=== PATIENT | male | born 1940 | race Caucasian/White ===

== ENCOUNTER 2019-04-01 05:36 | Inpatient (IN) ==
[2019-04-01] MEDS ORDERED: DILTIAZEM 50 MG/10 ML VIAL IV STA (06:08)
[2019-04-01 06:13] LABS: Basophils # 0.1 10*3/uL (0.0-0.2); Eosinophils # 0.2 10*3/uL (0.0-0.87); Hematocrit 51.8 VOL% (42.0-52.0); Hemoglobin 16.9 GM/DL (14.0-18.0); Immature Granulocytes % 0.4 %; Immature Granulocytes Absolute 0.04 #; Lymphocytes # 1.5 10*3/uL (1.4-4.0); Lymphocytes % 14.4 % (21.2-54.2); Mean Corpuscular HGB Conc 32.6 GM/DL (32-36); Mean Corpuscular Volume 100.2 FL (87-102); Mean Platelet Volume 9.7 FL (9.6-12.0); Monocytes % 9.2 % (1.7-12.7); Platelet Count 278 T/CUMM (130-400); Red Blood Count 5.17 MC/CUMM (3.8-5.5); Red Cell Distribution Width 14.8 % (9.3-17.3); White Blood Count 10.7 T/CUMM (4-12)
[2019-04-01] MEDS ORDERED: dilTIAZem Drip 125 MG/125 ML PREMIX IV SCH (06:30)
[2019-04-01 06:43] LABS: INR 1.2; PT Patient Result 13.2 SECS (9.6-12.2); Partial Thromboplastin Time 29.6 SECS (20.8-36.0)
[2019-04-01 07:10] LABS: Albumin 3.2 G/DL (3.4-5.0); Bilirubin,Total 1.5 MG/DL (0.2-1.0); Calcium 8.1 MG/DL (8.5-10.1); Thyroid Stimulating Hormone 0.776 uIU/ml (0.358-3.74); Total Protein 7.8 G/DL (6.4-8.3)
[2019-04-01] MEDS ORDERED: FUROSEMIDE 40 MG/4 ML VIAL IV STA (07:23)
[2019-04-01] MEDS ORDERED: BISACODYL 5 MG TABLET PO PRN (08:05)
[2019-04-01] MEDS ORDERED: ONDANSETRON 4 MG/2 ML VIAL IV PRN (08:05)
[2019-04-01] MEDS ORDERED: guaiFENesin/DM ER 600-30 MG TABLET PO PRN (08:05)
[2019-04-01] MEDS ORDERED: NICOTINE 21 MG/24 HR PATCH TRANSDERM PRN (08:05)
[2019-04-01] MEDS: APIXABAN 5 MG TABLET PO SCH ×2 (10:07→21:01)
[2019-04-01] MEDS: PANTOPRAZOLE 40 MG TABLET PO SCH (10:07)
[2019-04-01 10:10] LABS: Barbiturates Screen,Urine Negative (Negative); Benzodiazepines Screen,Urine Negative (Negative); Cannabinoid Screen,Urine Negative (Negative); Opiate Screen,Urine Negative (Negative); Phencyclidine Screen,Urine Negative (Negative)
[2019-04-01] MEDS ORDERED: ALBUTEROL 2.5 MG/3 ML NEB RESP TX PRN (12:30)
[2019-04-01] MEDS: ASPIRIN EC 81 MG TABLET PO SCH (14:36)
[2019-04-01] MEDS: FUROSEMIDE 40 MG/4 ML VIAL IV SCH (15:52)
[2019-04-01] MEDS: dilTIAZem Drip 125 MG/125 ML PREMIX IV SCH (16:05)
[2019-04-01] MEDS: METOPROLOL SUCCINATE XL 50 MG TABLET PO SCH (21:01)
[2019-04-01] MEDS: ZALEPLON 5 MG CAPSULE PO SCH (21:01)
[2019-04-02] MEDS: dilTIAZem Drip 125 MG/125 ML PREMIX IV SCH ×2 (05:41→09:04)
[2019-04-02 05:52] LABS: Bilirubin,Total 1.2 MG/DL (0.2-1.0); Calcium 8.7 MG/DL (8.5-10.1); Osmolality,Calculated 282.4 MOS/KG (273-304); Risk Ratio 2.22; VLDL CHOLESTEROL 10.8 MG/DL
[2019-04-02] MEDS: PANTOPRAZOLE 40 MG TABLET PO SCH (09:02)
[2019-04-02] MEDS: METOPROLOL SUCCINATE XL 50 MG TABLET PO SCH (09:02)
[2019-04-02] MEDS: ASPIRIN EC 81 MG TABLET PO SCH (09:02)
[2019-04-02] MEDS: FUROSEMIDE 40 MG/4 ML VIAL IV SCH (09:03)
[2019-04-02] MEDS: APIXABAN 5 MG TABLET PO SCH ×2 (09:03→20:34)
[2019-04-02] MEDS ORDERED: METOPROLOL SUCCINATE XL 25 MG TABLET PO ONE (10:39)
[2019-04-02] MEDS: SPIRONOLACTONE 25 MG TABLET PO SCH (10:50)
[2019-04-02] MEDS: cefTRIAXone 1,000 MG in SYRINGE 1 EACH IV SCH (10:52)
[2019-04-02] MEDS: AZITHROMYCIN INJ 500 MG in SODIUM CHLORIDE 0.9% 250 ML IV SCH (10:54)
[2019-04-02] MEDS: FUROSEMIDE 40 MG TABLET PO SCH (15:59)
[2019-04-02] MEDS: ACETAMINOPHEN 325 MG TABLET PO PRN (19:22)
[2019-04-02] MEDS: METOPROLOL SUCCINATE XL 100 MG TABLET PO SCH (20:34)
[2019-04-02] MEDS: ZALEPLON 5 MG CAPSULE PO SCH (20:35)
[2019-04-02] MEDS: guaiFENesin/DM ER 600-30 MG TABLET PO SCH (20:35)
[2019-04-03 05:29] LABS: Calcium 8.2 MG/DL (8.5-10.1); Osmolality,Calculated 278.8 MOS/KG (273-304)
[2019-04-03] MEDS: FUROSEMIDE 40 MG TABLET PO SCH ×2 (09:25→15:28)
[2019-04-03] MEDS: guaiFENesin/DM ER 600-30 MG TABLET PO SCH ×2 (09:25→21:22)
[2019-04-03] MEDS: SPIRONOLACTONE 25 MG TABLET PO SCH (09:25)
[2019-04-03] MEDS: METOPROLOL SUCCINATE XL 100 MG TABLET PO SCH ×2 (09:25→21:22)
[2019-04-03] MEDS: APIXABAN 5 MG TABLET PO SCH ×2 (09:25→21:22)
[2019-04-03] MEDS: PANTOPRAZOLE 40 MG TABLET PO SCH (09:25)
[2019-04-03] MEDS: ASPIRIN EC 81 MG TABLET PO SCH (09:26)
[2019-04-03] MEDS: cefTRIAXone 1,000 MG in SYRINGE 1 EACH IV SCH (09:26)
[2019-04-03] MEDS ORDERED: LORazepam 0.5 MG TABLET PO PRN (10:16)
[2019-04-03] MEDS: predniSONE 20 MG TABLET PO SCH (10:56)
[2019-04-03] MEDS: AZITHROMYCIN INJ 500 MG in SODIUM CHLORIDE 0.9% 250 ML IV SCH (11:00)
[2019-04-03] MEDS: ACETAMINOPHEN 325 MG TABLET PO PRN (17:41)
[2019-04-03] MEDS: ZALEPLON 5 MG CAPSULE PO SCH (21:22)
[2019-04-03] MEDS: SERTRALINE 25 MG TABLET PO SCH (21:22)
[2019-04-04 05:21] LABS: Basophils % 0.3 % (0.0-0.8); Hemoglobin 16.7 GM/DL (14.0-18.0); Immature Granulocytes % 0.3 %; Immature Granulocytes Absolute 0.02 #; Lymphocytes # 0.8 10*3/uL (1.4-4.0); Lymphocytes % 11.8 % (21.2-54.2); Mean Corpuscular HGB Conc 34.1 GM/DL (32-36); Mean Corpuscular Volume 97.2 FL (87-102); Mean Platelet Volume 9.8 FL (9.6-12.0); Monocytes % 4.9 % (1.7-12.7); Neutrophils % 82.7 % (38.7-73.9); Platelet Count 360 T/CUMM (130-400); Red Blood Count 5.04 MC/CUMM (3.8-5.5); Red Cell Distribution Width 13.9 % (9.3-17.3); White Blood Count 7.1 T/CUMM (4-12)
[2019-04-04 05:49] LABS: Calcium 8.4 MG/DL (8.5-10.1); Osmolality,Calculated 280.8 MOS/KG (273-304)
[2019-04-04] MEDS: predniSONE 20 MG TABLET PO SCH (08:43)
[2019-04-04] MEDS: guaiFENesin/DM ER 600-30 MG TABLET PO SCH ×2 (08:43→20:37)
[2019-04-04] MEDS: ASPIRIN EC 81 MG TABLET PO SCH (08:43)
[2019-04-04] MEDS: FUROSEMIDE 40 MG TABLET PO SCH (08:44)
[2019-04-04] MEDS: APIXABAN 5 MG TABLET PO SCH ×2 (08:44→20:38)
[2019-04-04] MEDS: SPIRONOLACTONE 25 MG TABLET PO SCH (08:44)
[2019-04-04] MEDS: PANTOPRAZOLE 40 MG TABLET PO SCH (08:44)
[2019-04-04] MEDS: METOPROLOL SUCCINATE XL 100 MG TABLET PO SCH ×2 (08:44→20:37)
[2019-04-04] MEDS: AZITHROMYCIN INJ 500 MG in SODIUM CHLORIDE 0.9% 250 ML IV SCH (09:56)
[2019-04-04] MEDS: cefTRIAXone 1,000 MG in SYRINGE 1 EACH IV SCH (09:57)
[2019-04-04] MEDS ORDERED: propofoL 200 MG/20 ML VIAL IV ONE (12:07)
[2019-04-04] MEDS ORDERED: LIDOCAINE 2% 5 ML VIAL ONE (12:07)
[2019-04-04] MEDS ORDERED: SODIUM CHLORIDE 0.9% 1,000 ML IV SCH (13:30)
[2019-04-04] MEDS: ZALEPLON 5 MG CAPSULE PO SCH (20:37)
[2019-04-04] MEDS: ACETAMINOPHEN 325 MG TABLET PO PRN (20:37)
[2019-04-04] MEDS: SERTRALINE 25 MG TABLET PO SCH (20:38)
[2019-04-05 05:40] LABS: Osmolality,Calculated 285.7 MOS/KG (273-304)
[2019-04-05] MEDS: guaiFENesin/DM ER 600-30 MG TABLET PO SCH (08:56)
[2019-04-05] MEDS: ASPIRIN EC 81 MG TABLET PO SCH (08:56)
[2019-04-05] MEDS: FUROSEMIDE 40 MG TABLET PO SCH (08:56)
[2019-04-05] MEDS: APIXABAN 5 MG TABLET PO SCH (08:56)
[2019-04-05] MEDS: predniSONE 20 MG TABLET PO SCH (08:56)
[2019-04-05] MEDS: PANTOPRAZOLE 40 MG TABLET PO SCH (08:57)
[2019-04-05] MEDS: METOPROLOL SUCCINATE XL 100 MG TABLET PO SCH (08:57)
[2019-04-05] MEDS: cefTRIAXone 1,000 MG in SYRINGE 1 EACH IV SCH (09:01)
[2019-04-05 16:37] VITALS: BP 132/80
== END 2019-04-05 18:45 | disposition home or self-care (01) | DRG 308 ==
LOC: N.ED 05:36 → N.EDINP 08:05 → N.TELES 12:16
PROVIDERS: ADMIT Internal Medicine; ATTEND Internal Medicine

== ENCOUNTER 2020-12-31 12:35 | Inpatient (IN) ==
[2020-12-31 13:51] LABS: Bilirubin,Urine Negative (Negative); Blood, Urine Small mg/dL (Negative); Glucose,Urine (UA) Negative (Negative); Ketones,Urine Negative (Negative); Nitrite,Urine Negative (Negative); Protein,Urine Negative; RBC,Urine 2 /HPF (0-4); Urine Appearance CLEAR (Clear); Urine Color Yellow (Yellow); Urine Specific Gravity 1.012 (1.001-1.035); Urine Urobilinogen < 2.0 EU/DL (0.2-1.0)
[2020-12-31 13:57] LABS: Basophils % 0.4 % (0.0-0.8); Eosinophils # 0.1 10*3/uL (0.0-0.87); Eosinophils % 1.4 % (0.00-10.9); Hematocrit 23.2 VOL% (42.0-52.0); Hemoglobin 7.6 GM/DL (14.0-18.0); Immature Granulocytes % 0.6 %; Immature Granulocytes Absolute 0.05 #; Lymphocytes # 0.8 10*3/uL (1.4-4.0); Lymphocytes % 9.2 % (21.2-54.2); Mean Corpuscular HGB Conc 32.8 GM/DL (32-36); Mean Corpuscular Volume 103.6 FL (87-102); Mean Platelet Volume 9.8 FL (9.6-12.0); Monocytes % 7.3 % (1.7-12.7); Neutrophils % 81.1 % (38.7-73.9); Platelet Count 132 T/CUMM (130-400); Red Blood Count 2.24 MC/CUMM (3.8-5.5); Red Cell Distribution Width 18.1 % (9.3-17.3); White Blood Count 8.5 T/CUMM (4-12)
[2020-12-31 14:08] LABS: Alanine Aminotransferase 265 U/L (16-61); Albumin 2.3 G/DL (3.4-5.0); Alkaline Phosphatase 98 U/L (45-117); Aspartate Amino Transferase 109 U/L (0-37); Blood Urea Nitrogen 52 MG/DL (7-18); Calcium 7.5 MG/DL (8.5-10.1); Carbon Dioxide 29 MMOL/L (21-32); Estimated Glom Filtration Rate 92 ML/MIN; Glucose 114 MG/DL (74-106); Potassium 4.9 MMOL/L (3.5-5.1); Sodium 143 MMOL/L (136-145); Total Protein 4.4 G/DL (6.4-8.2)
[2020-12-31 14:28] LABS: INR 1.2; PT Patient Result 12.8 SECS (10.5-12.0); Partial Thromboplastin Time 27.9 SECS (23.9-33.8)
[2020-12-31] MEDS ORDERED: PANTOPRAZOLE 40 MG VIAL IV STA (14:58)
[2020-12-31] MEDS ORDERED: cefTRIAXone 2,000 MG in SODIUM CHLORIDE 0.9% 100 ML IV STA (15:04)
[2020-12-31] MEDS ORDERED: ONDANSETRON 4 MG/2 ML VIAL IV PRN (15:35)
[2020-12-31] MEDS ORDERED: DEXTROSE 50% 25 GM/50 ML VIAL IV PRN (15:35)
[2020-12-31] MEDS ORDERED: GLUCAGON 1 MG VIAL IM PRN (15:35)
[2020-12-31] MEDS ORDERED: NICOTINE 21 MG/24 HR PATCH TRANSDERM PRN (16:16)
[2020-12-31 16:44] LABS: Hepatitis B Core IgM Quant 0.08 Index; Hepatitis B Surface Ag Quant < 0.10 Index; Hepatitis B Surface Ag Result Non-Reactive (NonReactive); Hepatitis C Virus Ab Quant 0.06 Index; Hepatitis C Virus Ab Result Non-Reactive (NonReactive)
[2020-12-31 16:52] LABS: Folate 7.76 NG/ML (5.38-24.0)
[2020-12-31] MEDS: SODIUM CHLORIDE 0.9% 1,000 ML IV SCH (17:19)
[2020-12-31 17:29] LABS: Hematocrit 20.8 VOL% (42.0-52.0)
[2020-12-31] MEDS: PANTOPRAZOLE 40 MG TABLET PO SCH (20:50)
[2020-12-31 21:45] LABS: Hematocrit 19.5 VOL% (42.0-52.0); Hemoglobin 6.5 GM/DL (14.0-18.0)
[2020-12-31] MEDS ORDERED: SODIUM CHLORIDE 0.9% 1,000 ML IV PRN (22:58)
[2021-01-01] MEDS ORDERED: SODIUM CHLORIDE 0.9% 1,000 ML IV PRN (02:28)
[2021-01-01] MEDS: PANTOPRAZOLE 40 MG TABLET PO SCH ×2 (08:23→20:40)
[2021-01-01 09:28] LABS: Basophils # 0.1 10*3/uL (0.0-0.2); Basophils % 0.7 % (0.0-0.8); Eosinophils # 0.4 10*3/uL (0.0-0.87); Eosinophils % 4.5 % (0.00-10.9); Hematocrit 27.3 VOL% (42.0-52.0); Immature Granulocytes % 0.3 %; Immature Granulocytes Absolute 0.03 #; Lymphocytes % 21.7 % (21.2-54.2); Mean Corpuscular HGB Conc 33.7 GM/DL (32-36); Mean Corpuscular Volume 97.8 FL (87-102); Mean Platelet Volume 9.7 FL (9.6-12.0); Monocytes % 9.1 % (1.7-12.7); Neutrophils % 63.7 % (38.7-73.9); Platelet Count 121 T/CUMM (130-400); Red Cell Distribution Width 17.8 % (9.3-17.3); White Blood Count 9.1 T/CUMM (4-12)
[2021-01-01 09:29] LABS: Red Blood Count 2.79 MC/CUMM (3.8-5.5)
[2021-01-01 09:30] LABS: Hemoglobin 9.2 GM/DL (14.0-18.0)
[2021-01-01 09:50] LABS: Albumin 2.3 G/DL (3.4-5.0); Bilirubin,Total 1.1 MG/DL (0.20-1.00); Calcium 7.7 MG/DL (8.5-10.1); Potassium 4.2 MMOL/L (3.5-5.1); Total Protein 5.3 G/DL (6.4-8.2)
[2021-01-01 09:56] LABS: Osmolality,Calculated 293.1 MOS/KG (273-304)
[2021-01-01 14:04] LABS: Hematocrit 27.6 VOL% (42.0-52.0); Hemoglobin 9.4 GM/DL (14.0-18.0)
[2021-01-01 21:09] LABS: Hematocrit 25.6 VOL% (42.0-52.0); Hemoglobin 8.4 GM/DL (14.0-18.0)
[2021-01-02] MEDS: SODIUM CHLORIDE 0.9% 1,000 ML IV SCH ×4 (00:33→22:46)
[2021-01-02 05:52] LABS: Albumin 2.1 G/DL (3.4-5.0); Bilirubin,Total 1.1 MG/DL (0.20-1.00); Calcium 7.9 MG/DL (8.5-10.1); Osmolality,Calculated 292.7 MOS/KG (273-304); Potassium 3.8 MMOL/L (3.5-5.1)
[2021-01-02 07:04] LABS: Basophils # 0.1 10*3/uL (0.0-0.2); Basophils % 0.6 % (0.0-0.8); Eosinophils # 0.4 10*3/uL (0.0-0.87); Eosinophils % 4.8 % (0.00-10.9); Hematocrit 25.1 VOL% (42.0-52.0); Hemoglobin 8.2 GM/DL (14.0-18.0); Immature Granulocytes % 0.5 %; Immature Granulocytes Absolute 0.04 #; Lymphocytes # 2.1 10*3/uL (1.4-4.0); Lymphocytes % 24.6 % (21.2-54.2); Mean Corpuscular HGB Conc 32.7 GM/DL (32-36); Mean Corpuscular Volume 99.2 FL (87-102); Mean Platelet Volume 9.5 FL (9.6-12.0); Monocytes % 11.1 % (1.7-12.7); Neutrophils % 58.4 % (38.7-73.9); Platelet Count 134 T/CUMM (130-400); Red Blood Count 2.53 MC/CUMM (3.8-5.5); Red Cell Distribution Width 17.9 % (9.3-17.3); White Blood Count 8.4 T/CUMM (4-12)
[2021-01-02] MEDS: PANTOPRAZOLE 40 MG TABLET PO SCH ×2 (08:13→20:39)
[2021-01-02] MEDS ORDERED: DIGOXIN 0.125 MG TABLET PO ONE (08:48)
[2021-01-02] MEDS ORDERED: GLUCAGON 1 MG VIAL IM PRN (10:42)
[2021-01-02] MEDS ORDERED: DEXTROSE 50% 25 GM/50 ML VIAL IV PRN (10:42)
[2021-01-02] MEDS: cefTRIAXone 1,000 MG in SODIUM CHLORIDE 0.9% 100 ML IV SCH (13:57)
[2021-01-02] MEDS: traZODone 50 MG TABLET PO SCH (20:39)
[2021-01-02] MEDS: TAMSULOSIN 0.4 MG CAPSULE PO SCH (20:39)
[2021-01-03 05:32] LABS: Basophils # 0.1 10*3/uL (0.0-0.2); Basophils % 0.7 % (0.0-0.8); Eosinophils # 0.3 10*3/uL (0.0-0.87); Eosinophils % 3.4 % (0.00-10.9); Hematocrit 24.5 VOL% (42.0-52.0); Hemoglobin 8.2 GM/DL (14.0-18.0); Immature Granulocytes % 0.5 %; Immature Granulocytes Absolute 0.04 #; Lymphocytes # 1.4 10*3/uL (1.4-4.0); Lymphocytes % 17.1 % (21.2-54.2); Mean Corpuscular HGB Conc 33.5 GM/DL (32-36); Mean Corpuscular Volume 99.2 FL (87-102); Mean Platelet Volume 9.7 FL (9.6-12.0); Neutrophils % 66.3 % (38.7-73.9); Platelet Count 149 T/CUMM (130-400); Red Blood Count 2.47 MC/CUMM (3.8-5.5); Red Cell Distribution Width 17.5 % (9.3-17.3); White Blood Count 8.3 T/CUMM (4-12)
[2021-01-03 05:54] LABS: Albumin 2.2 G/DL (3.4-5.0); Bilirubin,Total 0.8 MG/DL (0.20-1.00); Calcium 7.7 MG/DL (8.5-10.1); Osmolality,Calculated 289.7 MOS/KG (273-304); Potassium 3.6 MMOL/L (3.5-5.1); Total Protein 5.2 G/DL (6.4-8.2)
[2021-01-03] MEDS ORDERED: ETOMIDATE 20 MG/10 ML VIAL IV ONE (11:38)
[2021-01-03] MEDS ORDERED: propofoL 200 MG/20 ML VIAL IV ONE (11:38)
[2021-01-03] MEDS ORDERED: LIDOCAINE 2% 5 ML VIAL ONE (11:38)
[2021-01-03] MEDS ORDERED: METOPROLOL TARTRATE 5 MG/5 ML VIAL IV ONE (11:41)
[2021-01-03] MEDS: PANTOPRAZOLE 40 MG TABLET PO SCH ×2 (14:12→20:03)
[2021-01-03] MEDS: cefTRIAXone 1,000 MG in SODIUM CHLORIDE 0.9% 100 ML IV SCH (14:13)
[2021-01-03] MEDS: SODIUM CHLORIDE 0.9% 1,000 ML IV SCH (14:13)
[2021-01-03] MEDS: traZODone 50 MG TABLET PO SCH (20:02)
[2021-01-03] MEDS: TAMSULOSIN 0.4 MG CAPSULE PO SCH (20:02)
[2021-01-03] MEDS: ACETAMINOPHEN 325 MG TABLET PO PRN (23:38)
[2021-01-04] MEDS ORDERED: METOPROLOL TARTRATE 5 MG/5 ML VIAL IV ONE (00:15)
[2021-01-04] MEDS: SODIUM CHLORIDE 0.9% 1,000 ML IV SCH ×3 (02:40→23:09)
[2021-01-04 05:14] LABS: Basophils % 0.4 % (0.0-0.8); Eosinophils # 0.2 10*3/uL (0.0-0.87); Eosinophils % 1.7 % (0.00-10.9); Hematocrit 24.1 VOL% (42.0-52.0); Hemoglobin 7.7 GM/DL (14.0-18.0); Immature Granulocytes % 0.3 %; Immature Granulocytes Absolute 0.03 #; Lymphocytes # 1.2 10*3/uL (1.4-4.0); Lymphocytes % 13.4 % (21.2-54.2); Mean Corpuscular Volume 100.8 FL (87-102); Mean Platelet Volume 9.7 FL (9.6-12.0); Monocytes % 12.4 % (1.7-12.7); Neutrophils % 71.8 % (38.7-73.9); Platelet Count 155 T/CUMM (130-400); Red Blood Count 2.39 MC/CUMM (3.8-5.5); Red Cell Distribution Width 17.6 % (9.3-17.3); White Blood Count 9.2 T/CUMM (4-12)
[2021-01-04 05:33] LABS: Albumin 2.2 G/DL (3.4-5.0); Bilirubin,Total 1.1 MG/DL (0.20-1.00); Calcium 7.6 MG/DL (8.5-10.1); Potassium 3.4 MMOL/L (3.5-5.1); Total Protein 5.2 G/DL (6.4-8.2)
[2021-01-04 05:34] LABS: Hypochromasia 1+; Microcytosis 1+; Platelet Estimate Adequate
[2021-01-04] MEDS ORDERED: POTASSIUM CHLORIDE 20 MEQ TABLET PO PRN (06:54)
[2021-01-04] MEDS ORDERED: MAGNESIUM SULF RIDER 1 GM/100 ML PREMIX IV ONE (07:30)
[2021-01-04] MEDS: FINASTERIDE 5 MG TABLET PO SCH (08:48)
[2021-01-04] MEDS: PANTOPRAZOLE 40 MG TABLET PO SCH ×2 (08:48→21:08)
[2021-01-04] MEDS ORDERED: METOPROLOL SUCCINATE XL 100 MG TABLET PO SCH (09:00)
[2021-01-04] MEDS ORDERED: ALBUTEROL 2.5 MG/3 ML NEB RESP TX PRN (09:32)
[2021-01-04] MEDS ORDERED: BENZONATATE 100 MG CAPSULE PO PRN (09:36)
[2021-01-04] MEDS ORDERED: SODIUM CHLORIDE 0.9% 1,000 ML IV PRN (09:37)
[2021-01-04] MEDS: DIGOXIN 0.125 MG TABLET PO SCH (14:10)
[2021-01-04] MEDS: cefTRIAXone 1,000 MG in SODIUM CHLORIDE 0.9% 100 ML IV SCH (16:51)
[2021-01-04 18:10] LABS: Hematocrit 29.3 VOL% (42.0-52.0); Hemoglobin 9.7 GM/DL (14.0-18.0)
[2021-01-04] MEDS ORDERED: METOPROLOL SUCCINATE XL 50 MG TABLET PO SCH (21:00)
[2021-01-04] MEDS: METOPROLOL TARTRATE 25 MG TABLET PO SCH (21:08)
[2021-01-04] MEDS: traZODone 50 MG TABLET PO SCH (21:08)
[2021-01-05] MEDS: SODIUM CHLORIDE 0.9% 1,000 ML IV SCH (04:30)
[2021-01-05 06:43] LABS: Basophils # 0.1 10*3/uL (0.0-0.2); Basophils % 0.7 % (0.0-0.8); Eosinophils # 0.2 10*3/uL (0.0-0.87); Eosinophils % 2.8 % (0.00-10.9); Hematocrit 33.6 VOL% (42.0-52.0); Hemoglobin 10.9 GM/DL (14.0-18.0); Immature Granulocytes % 0.3 %; Immature Granulocytes Absolute 0.02 #; Lymphocytes # 1.1 10*3/uL (1.4-4.0); Lymphocytes % 14.2 % (21.2-54.2); Mean Corpuscular HGB Conc 32.4 GM/DL (32-36); Mean Corpuscular Volume 98.2 FL (87-102); Mean Platelet Volume 9.7 FL (9.6-12.0); Monocytes % 12.6 % (1.7-12.7); Neutrophils % 69.4 % (38.7-73.9); Platelet Count 192 T/CUMM (130-400); Red Blood Count 3.42 MC/CUMM (3.8-5.5); Red Cell Distribution Width 18.6 % (9.3-17.3); White Blood Count 7.5 T/CUMM (4-12)
[2021-01-05 07:12] LABS: Albumin 2.3 G/DL (3.4-5.0); Bilirubin,Total 1.6 MG/DL (0.20-1.00); Calcium 8.1 MG/DL (8.5-10.1); Osmolality,Calculated 286.8 MOS/KG (273-304); Potassium 3.7 MMOL/L (3.5-5.1); Total Protein 5.6 G/DL (6.4-8.2)
[2021-01-05] MEDS ORDERED: FINASTERIDE 5 MG TABLET PO SCH (09:00)
[2021-01-05] MEDS: PANTOPRAZOLE 40 MG TABLET PO SCH ×2 (09:09→21:36)
[2021-01-05] MEDS: FINASTERIDE 5 MG TABLET PO SCH (09:09)
[2021-01-05] MEDS: METOPROLOL TARTRATE 25 MG TABLET PO SCH ×2 (09:09→21:36)
[2021-01-05] MEDS: FLUCONAZOLE 200 MG TABLET PO SCH (09:10)
[2021-01-05] MEDS ORDERED: INFLUENZA VIRUS VACCINE 0.5 ML SYRINGE IM ONE (10:50)
[2021-01-05] MEDS ORDERED: BISACODYL 5 MG TABLET PO ONE (12:00)
[2021-01-05] MEDS: DIGOXIN 0.125 MG TABLET PO SCH (12:34)
[2021-01-05] MEDS: cefTRIAXone 1,000 MG in SODIUM CHLORIDE 0.9% 100 ML IV SCH (12:35)
[2021-01-05] MEDS ORDERED: POLYETHYLENE GLYCOL POWDER 255 GM BOTTLE PO ONE (13:00)
[2021-01-05] MEDS: ACETAMINOPHEN 325 MG TABLET PO PRN ×2 (14:40→21:35)
[2021-01-05] MEDS ORDERED: MAGNESIUM CITRATE 300 ML BOTTLE PO ONE (21:00)
[2021-01-05] MEDS: traZODone 50 MG TABLET PO SCH (21:36)
[2021-01-06 05:34] LABS: Basophils # 0.1 10*3/uL (0.0-0.2); Basophils % 0.6 % (0.0-0.8); Eosinophils # 0.2 10*3/uL (0.0-0.87); Eosinophils % 2.9 % (0.00-10.9); Hematocrit 33.2 VOL% (42.0-52.0); Hemoglobin 10.8 GM/DL (14.0-18.0); Immature Granulocytes % 0.4 %; Immature Granulocytes Absolute 0.03 #; Lymphocytes # 1.4 10*3/uL (1.4-4.0); Lymphocytes % 18.6 % (21.2-54.2); Mean Corpuscular HGB Conc 32.5 GM/DL (32-36); Mean Corpuscular Volume 99.1 FL (87-102); Mean Platelet Volume 9.7 FL (9.6-12.0); Monocytes % 12.6 % (1.7-12.7); Neutrophils % 64.9 % (38.7-73.9); Platelet Count 204 T/CUMM (130-400); Red Blood Count 3.35 MC/CUMM (3.8-5.5); Red Cell Distribution Width 18.6 % (9.3-17.3); White Blood Count 7.7 T/CUMM (4-12)
[2021-01-06 05:37] LABS: INR 1.1; PT Patient Result 12.2 SECS (10.5-12.0)
[2021-01-06 06:02] LABS: Albumin 2.3 G/DL (3.4-5.0); Bilirubin,Total 0.8 MG/DL (0.20-1.00); Calcium 7.8 MG/DL (8.5-10.1); Potassium 3.7 MMOL/L (3.5-5.1); Total Protein 5.7 G/DL (6.4-8.2)
[2021-01-06] MEDS ORDERED: SODIUM CHLORIDE 0.9% 1,000 ML IV SCH (08:00)
[2021-01-06] MEDS: PANTOPRAZOLE 40 MG TABLET PO SCH ×3 (08:29→22:10)
[2021-01-06] MEDS: FLUCONAZOLE 200 MG TABLET PO SCH ×2 (08:29→11:34)
[2021-01-06] MEDS: FINASTERIDE 5 MG TABLET PO SCH ×2 (08:29→11:34)
[2021-01-06] MEDS: METOPROLOL TARTRATE 25 MG TABLET PO SCH ×2 (08:29→11:34)
[2021-01-06] MEDS ORDERED: POLYETHYLENE GLYCOL POWDER 255 GM BOTTLE PO ONE (11:00)
[2021-01-06] MEDS: DIGOXIN 0.125 MG TABLET PO SCH (12:02)
[2021-01-06] MEDS: cefTRIAXone 1,000 MG in SODIUM CHLORIDE 0.9% 100 ML IV SCH (12:33)
[2021-01-06] MEDS ORDERED: METOPROLOL TARTRATE 25 MG TABLET PO ONE (14:45)
[2021-01-06] MEDS: METOPROLOL TARTRATE 50 MG TABLET PO SCH (22:10)
[2021-01-06] MEDS: traZODone 50 MG TABLET PO SCH (22:10)
[2021-01-07 06:01] LABS: Basophils # 0.1 10*3/uL (0.0-0.2); Basophils % 0.7 % (0.0-0.8); Eosinophils # 0.2 10*3/uL (0.0-0.87); Eosinophils % 1.9 % (0.00-10.9); Hematocrit 36.5 VOL% (42.0-52.0); Hemoglobin 11.8 GM/DL (14.0-18.0); Immature Granulocytes % 0.4 %; Immature Granulocytes Absolute 0.04 #; Lymphocytes # 1.4 10*3/uL (1.4-4.0); Lymphocytes % 15.6 % (21.2-54.2); Mean Corpuscular HGB Conc 32.3 GM/DL (32-36); Mean Corpuscular Volume 100.6 FL (87-102); Mean Platelet Volume 9.8 FL (9.6-12.0); Neutrophils % 71.4 % (38.7-73.9); Platelet Count 288 T/CUMM (130-400); Red Blood Count 3.63 MC/CUMM (3.8-5.5); Red Cell Distribution Width 18.6 % (9.3-17.3); White Blood Count 9.1 T/CUMM (4-12)
[2021-01-07 06:07] LABS: INR 1.1; PT Patient Result 11.8 SECS (10.5-12.0)
[2021-01-07 06:19] LABS: Albumin 2.5 G/DL (3.4-5.0); Bilirubin,Total 0.8 MG/DL (0.20-1.00); Calcium 8.3 MG/DL (8.5-10.1); Osmolality,Calculated 284.8 MOS/KG (273-304); Potassium 3.6 MMOL/L (3.5-5.1); Total Protein 6.1 G/DL (6.4-8.2)
[2021-01-07] MEDS ORDERED: propofoL 200 MG/20 ML VIAL IV ONE (07:28)
[2021-01-07] MEDS ORDERED: ETOMIDATE 20 MG/10 ML VIAL IV ONE (07:28)
[2021-01-07] MEDS ORDERED: LIDOCAINE 2% 5 ML VIAL ONE (07:28)
[2021-01-07] MEDS ORDERED: SODIUM CHLORIDE 0.9% 1,000 ML IV SCH (08:00)
[2021-01-07] MEDS ORDERED: SODIUM CHLORIDE 0.9% 500 ML IV SCH (08:00)
[2021-01-07] MEDS ORDERED: PHENYLEPHRINE 1 MG/10 ML SYRINGE IV ONE (08:28)
[2021-01-07] MEDS: METOPROLOL TARTRATE 50 MG TABLET PO SCH ×2 (10:05→21:23)
[2021-01-07] MEDS: FINASTERIDE 5 MG TABLET PO SCH (10:05)
[2021-01-07] MEDS: cefTRIAXone 1,000 MG in SODIUM CHLORIDE 0.9% 100 ML IV SCH (10:05)
[2021-01-07] MEDS: PANTOPRAZOLE 40 MG TABLET PO SCH ×2 (10:05→21:23)
[2021-01-07] MEDS: FLUCONAZOLE 200 MG TABLET PO SCH (10:05)
[2021-01-07] MEDS: DIGOXIN 0.125 MG TABLET PO SCH (16:04)
[2021-01-07] MEDS: ACETAMINOPHEN 325 MG TABLET PO PRN (18:09)
[2021-01-07] MEDS: APIXABAN 5 MG TABLET PO SCH (21:22)
[2021-01-07] MEDS: traZODone 50 MG TABLET PO SCH (21:23)
[2021-01-08 05:19] LABS: Basophils # 0.1 10*3/uL (0.0-0.2); Basophils % 0.8 % (0.0-0.8); Eosinophils # 0.2 10*3/uL (0.0-0.87); Eosinophils % 2.8 % (0.00-10.9); Hematocrit 35.4 VOL% (42.0-52.0); Hemoglobin 11.4 GM/DL (14.0-18.0); Immature Granulocytes % 0.4 %; Immature Granulocytes Absolute 0.03 #; Lymphocytes # 1.7 10*3/uL (1.4-4.0); Mean Corpuscular HGB Conc 32.2 GM/DL (32-36); Mean Corpuscular Volume 99.4 FL (87-102); Mean Platelet Volume 9.7 FL (9.6-12.0); Monocytes % 11.3 % (1.7-12.7); Neutrophils % 62.7 % (38.7-73.9); Platelet Count 257 T/CUMM (130-400); Red Blood Count 3.56 MC/CUMM (3.8-5.5); Red Cell Distribution Width 18.3 % (9.3-17.3); White Blood Count 7.6 T/CUMM (4-12)
[2021-01-08 05:44] LABS: Bilirubin,Total 0.5 MG/DL (0.20-1.00); Calcium 7.8 MG/DL (8.5-10.1); Osmolality,Calculated 273.8 MOS/KG (273-304); Potassium 3.7 MMOL/L (3.5-5.1); Total Protein 5.5 G/DL (6.4-8.2)
[2021-01-08 05:46] LABS: Eosinophils 4 % (0-10); Lymphocytes 20 % (20-55); Platelet Estimate Normal; Segmented Neutrophils 68 % (50-85); Total Cells Counted 100
[2021-01-08] MEDS: PANTOPRAZOLE 40 MG TABLET PO SCH (09:44)
[2021-01-08] MEDS: METOPROLOL TARTRATE 50 MG TABLET PO SCH (09:44)
[2021-01-08] MEDS: APIXABAN 5 MG TABLET PO SCH (09:44)
[2021-01-08] MEDS: FINASTERIDE 5 MG TABLET PO SCH (09:44)
[2021-01-08] MEDS: FLUCONAZOLE 200 MG TABLET PO SCH (09:44)
[2021-01-08] MEDS: cefTRIAXone 1,000 MG in SODIUM CHLORIDE 0.9% 100 ML IV SCH (09:45)
[2021-01-08 12:37] VITALS: BP 101/60
== END 2021-01-08 13:45 | disposition home or self-care (01) | DRG 378 ==
LOC: N.ED 12:35 → SUATTDRO 17:13 → N.EDINP 17:13 → N.3E 17:41
PROVIDERS: ADMIT Internal Medicine Geriatric Medicine; ATTEND Internal Medicine

== ENCOUNTER 2021-02-28 13:59 | Inpatient (IN) ==
[2021-02-28 17:46] LABS: Basophils % 0.5 % (0.0-0.8); Eosinophils # 0.3 10*3/uL (0.0-0.87); Hematocrit 36.2 VOL% (42.0-52.0); Hemoglobin 11.4 GM/DL (14.0-18.0); Immature Granulocytes % 0.5 %; Immature Granulocytes Absolute 0.04 #; Lymphocytes % 12.3 % (21.2-54.2); Mean Corpuscular HGB Conc 31.5 GM/DL (32-36); Mean Corpuscular Volume 98.6 FL (87-102); Mean Platelet Volume 9.8 FL (9.6-12.0); Monocytes % 10.1 % (1.7-12.7); Neutrophils % 72.6 % (38.7-73.9); Platelet Count 175 T/CUMM (130-400); Red Blood Count 3.67 MC/CUMM (3.8-5.5); Red Cell Distribution Width 19.9 % (9.3-17.3); White Blood Count 7.9 T/CUMM (4-12)
[2021-02-28 17:50] LABS: Albumin 2.7 G/DL (3.4-5.0); Bilirubin,Total 0.9 MG/DL (0.20-1.00); Calcium 8.6 MG/DL (8.5-10.1); Osmolality,Calculated 281.7 MOS/KG (273-304); Potassium 4.3 MMOL/L (3.5-5.1)
[2021-02-28] MEDS ORDERED: ONDANSETRON 4 MG/2 ML VIAL IV PRN (19:48)
[2021-02-28] MEDS ORDERED: GLUCAGON 1 MG VIAL IM PRN (19:48)
[2021-02-28] MEDS ORDERED: NICOTINE 21 MG/24 HR PATCH TRANSDERM PRN (19:48)
[2021-02-28] MEDS ORDERED: DEXTROSE 50% 25 GM/50 ML SYRINGE IV PRN (19:56)
[2021-02-28 20:36] LABS: % Iron Saturation 12.9 % (18-50)
[2021-02-28 20:37] LABS: Folate 12.68 NG/ML (5.38-24.0)
[2021-02-28] MEDS: PIPERACILLIN/TAZOBACTAM 3,375 MG in SODIUM CHLORIDE 0.9% 100 ML IV SCH (21:33)
[2021-02-28] MEDS: METOPROLOL TARTRATE 25 MG TABLET PO SCH (21:34)
[2021-02-28] MEDS: APIXABAN 5 MG TABLET PO SCH (21:34)
[2021-03-01] MEDS ORDERED: ALBUTEROL 2.5 MG/3 ML NEB RESP TX PRN (01:00)
[2021-03-01] MEDS: PIPERACILLIN/TAZOBACTAM 3,375 MG in SODIUM CHLORIDE 0.9% 100 ML IV SCH ×3 (06:08→21:04)
[2021-03-01 06:55] LABS: Basophils # 0.1 10*3/uL (0.0-0.2); Basophils % 0.9 % (0.0-0.8); Eosinophils # 0.3 10*3/uL (0.0-0.87); Eosinophils % 3.8 % (0.00-10.9); Hematocrit 37.3 VOL% (42.0-52.0); Hemoglobin 11.6 GM/DL (14.0-18.0); Immature Granulocytes % 0.3 %; Immature Granulocytes Absolute 0.02 #; Lymphocytes # 1.1 10*3/uL (1.4-4.0); Lymphocytes % 14.4 % (21.2-54.2); Mean Corpuscular HGB Conc 31.1 GM/DL (32-36); Mean Corpuscular Volume 97.9 FL (87-102); Mean Platelet Volume 9.9 FL (9.6-12.0); Neutrophils % 69.6 % (38.7-73.9); Platelet Count 169 T/CUMM (130-400); Red Blood Count 3.81 MC/CUMM (3.8-5.5); Red Cell Distribution Width 19.9 % (9.3-17.3); White Blood Count 7.4 T/CUMM (4-12)
[2021-03-01 07:15] LABS: Albumin 2.3 G/DL (3.4-5.0); Bilirubin,Total 1.8 MG/DL (0.20-1.00); Calcium 8.8 MG/DL (8.5-10.1); Osmolality,Calculated 281.7 MOS/KG (273-304); Potassium 4.7 MMOL/L (3.5-5.1); Risk Ratio 1.89; Total Protein 6.5 G/DL (6.4-8.2); VLDL Cholesterol 9.8 MG/DL
[2021-03-01] MEDS: FUROSEMIDE 40 MG/4 ML VIAL IV SCH ×2 (09:16→15:44)
[2021-03-01] MEDS: APIXABAN 5 MG TABLET PO SCH ×2 (09:16→21:03)
[2021-03-01] MEDS: FINASTERIDE 5 MG TABLET PO SCH (09:16)
[2021-03-01] MEDS: PANTOPRAZOLE 40 MG TABLET PO SCH (09:17)
[2021-03-01] MEDS: METOPROLOL TARTRATE 25 MG TABLET PO SCH ×2 (09:17→21:04)
[2021-03-01] MEDS: DIGOXIN 0.125 MG TABLET PO SCH (12:43)
[2021-03-01] MEDS ORDERED: NICOTINE 14 MG/24 HR PATCH TRANSDERM PRN (15:56)
[2021-03-01] MEDS: FERROUS SULFATE 325 MG TABLET PO SCH (21:03)
[2021-03-02] MEDS: PIPERACILLIN/TAZOBACTAM 3,375 MG in SODIUM CHLORIDE 0.9% 100 ML IV SCH ×3 (05:45→20:48)
[2021-03-02 08:15] LABS: Basophils # 0.1 10*3/uL (0.0-0.2); Basophils % 0.7 % (0.0-0.8); Eosinophils # 0.3 10*3/uL (0.0-0.87); Eosinophils % 3.5 % (0.00-10.9); Hematocrit 34.4 VOL% (42.0-52.0); Hemoglobin 10.7 GM/DL (14.0-18.0); Immature Granulocytes % 0.2 %; Immature Granulocytes Absolute 0.02 #; Lymphocytes # 1.2 10*3/uL (1.4-4.0); Lymphocytes % 14.3 % (21.2-54.2); Mean Corpuscular HGB Conc 31.1 GM/DL (32-36); Mean Corpuscular Volume 98.3 FL (87-102); Mean Platelet Volume 9.7 FL (9.6-12.0); Monocytes % 12.1 % (1.7-12.7); Neutrophils % 69.2 % (38.7-73.9); Platelet Count 168 T/CUMM (130-400); Red Cell Distribution Width 19.9 % (9.3-17.3); White Blood Count 8.1 T/CUMM (4-12)
[2021-03-02 08:34] LABS: Calcium 8.6 MG/DL (8.5-10.1); Osmolality,Calculated 281.7 MOS/KG (273-304); Potassium 4.1 MMOL/L (3.5-5.1)
[2021-03-02] MEDS: PANTOPRAZOLE 40 MG TABLET PO SCH (09:52)
[2021-03-02] MEDS: FUROSEMIDE 40 MG/4 ML VIAL IV SCH ×2 (09:52→16:07)
[2021-03-02] MEDS: APIXABAN 5 MG TABLET PO SCH ×2 (09:52→20:44)
[2021-03-02] MEDS: FERROUS SULFATE 325 MG TABLET PO SCH ×2 (09:52→20:49)
[2021-03-02] MEDS: FINASTERIDE 5 MG TABLET PO SCH (09:52)
[2021-03-02] MEDS: METOPROLOL TARTRATE 25 MG TABLET PO SCH ×2 (09:52→20:44)
[2021-03-02] MEDS ORDERED: VANCOMYCIN INJ 1,000 MG in SODIUM CHLORIDE 0.9% 250 ML IV SCH (10:00)
[2021-03-02] MEDS: DIGOXIN 0.125 MG TABLET PO SCH (12:33)
[2021-03-02] MEDS: OLANZapine 5 MG TABLET PO SCH (16:38)
[2021-03-03] MEDS ORDERED: OLANZapine 5 MG TABLET PO ONE (02:34)
[2021-03-03] MEDS: PIPERACILLIN/TAZOBACTAM 3,375 MG in SODIUM CHLORIDE 0.9% 100 ML IV SCH (05:46)
[2021-03-03 05:56] LABS: Basophils # 0.1 10*3/uL (0.0-0.2); Basophils % 0.9 % (0.0-0.8); Eosinophils # 0.2 10*3/uL (0.0-0.87); Eosinophils % 2.3 % (0.00-10.9); Hematocrit 37.5 VOL% (42.0-52.0); Hemoglobin 11.7 GM/DL (14.0-18.0); Immature Granulocytes % 0.4 %; Immature Granulocytes Absolute 0.03 #; Lymphocytes # 1.1 10*3/uL (1.4-4.0); Lymphocytes % 15.3 % (21.2-54.2); Mean Corpuscular HGB Conc 31.2 GM/DL (32-36); Mean Platelet Volume 9.9 FL (9.6-12.0); Monocytes % 12.7 % (1.7-12.7); Neutrophils % 68.4 % (38.7-73.9); Platelet Count 173 T/CUMM (130-400); Red Blood Count 3.75 MC/CUMM (3.8-5.5); Red Cell Distribution Width 20.2 % (9.3-17.3); White Blood Count 6.9 T/CUMM (4-12)
[2021-03-03 06:14] LABS: Calcium 8.4 MG/DL (8.5-10.1); Osmolality,Calculated 286.4 MOS/KG (273-304); Potassium 3.9 MMOL/L (3.5-5.1)
[2021-03-03] MEDS: APIXABAN 5 MG TABLET PO SCH ×2 (08:10→20:53)
[2021-03-03] MEDS: PANTOPRAZOLE 40 MG TABLET PO SCH (08:10)
[2021-03-03] MEDS: FERROUS SULFATE 325 MG TABLET PO SCH ×2 (08:10→20:58)
[2021-03-03] MEDS: FUROSEMIDE 40 MG/4 ML VIAL IV SCH ×2 (08:10→16:43)
[2021-03-03] MEDS: FINASTERIDE 5 MG TABLET PO SCH (08:10)
[2021-03-03] MEDS: METOPROLOL TARTRATE 25 MG TABLET PO SCH ×2 (08:10→20:54)
[2021-03-03] MEDS: OLANZapine 5 MG TABLET PO SCH (08:12)
[2021-03-03] MEDS ORDERED: DOXYCYCLINE HYCLATE 100 MG CAPSULE PO SCH (09:00)
[2021-03-03] MEDS ORDERED: LEVOFLOXACIN 250 MG TABLET PO SCH (09:00)
[2021-03-03] MEDS ORDERED: MAGNESIUM SULF RIDER 2 GM/50 ML PREMIX IV ONE (11:53)
[2021-03-03 12:43] LABS: ABG Base Excess 3.6 MMOL/L (-2.5-2.5); ABG HCO3 27.4 MMOL/L (20-26); ABG Oxygen Saturation 85.7 % (95-100); ABG PH 7.458 (7.35-7.45); ABG PO2 54.4 MM HG (80-95); ABG TCO2 24.6 MMOL/L (23-27); Allen Test Positive; Pt O2 Delivery Device Room Air
[2021-03-03] MEDS: DIGOXIN 0.125 MG TABLET PO SCH (13:03)
[2021-03-03 13:20] LABS: Albumin 2.6 G/DL (3.4-5.0); Bilirubin,Direct 0.76 MG/DL (0.0-0.20); Bilirubin,Indirect 0.5 MG/DL (0.0-1.0); Bilirubin,Total 1.3 MG/DL (0.20-1.00); Total Protein 6.8 G/DL (6.4-8.2)
[2021-03-03] MEDS: CLINDAMYCIN 300 MG CAPSULE PO SCH ×2 (14:53→21:08)
[2021-03-04 08:09] LABS: Basophils % 0.6 % (0.0-0.8); Eosinophils # 0.1 10*3/uL (0.0-0.87); Eosinophils % 0.9 % (0.00-10.9); Hematocrit 37.8 VOL% (42.0-52.0); Hemoglobin 11.7 GM/DL (14.0-18.0); Immature Granulocytes % 0.4 %; Immature Granulocytes Absolute 0.03 #; Lymphocytes % 14.6 % (21.2-54.2); Mean Corpuscular Volume 98.4 FL (87-102); Mean Platelet Volume 10.2 FL (9.6-12.0); Monocytes % 13.2 % (1.7-12.7); Neutrophils % 70.3 % (38.7-73.9); Platelet Count 177 T/CUMM (130-400); Red Blood Count 3.84 MC/CUMM (3.8-5.5); Red Cell Distribution Width 20.6 % (9.3-17.3); White Blood Count 6.8 T/CUMM (4-12)
[2021-03-04 08:25] LABS: Calcium 8.6 MG/DL (8.5-10.1); Osmolality,Calculated 288.4 MOS/KG (273-304); Potassium 4.5 MMOL/L (3.5-5.1)
[2021-03-04] MEDS ORDERED: SPIRONOLACTONE 25 MG TABLET PO SCH (09:00)
[2021-03-04] MEDS: CLINDAMYCIN 300 MG CAPSULE PO SCH (09:01)
[2021-03-04] MEDS: FERROUS SULFATE 325 MG TABLET PO SCH ×2 (09:01→21:28)
[2021-03-04] MEDS: METOPROLOL TARTRATE 25 MG TABLET PO SCH ×2 (09:01→21:29)
[2021-03-04] MEDS: FINASTERIDE 5 MG TABLET PO SCH (09:01)
[2021-03-04] MEDS: APIXABAN 5 MG TABLET PO SCH ×2 (09:01→21:30)
[2021-03-04] MEDS: PANTOPRAZOLE 40 MG TABLET PO SCH (09:01)
[2021-03-04] MEDS: FUROSEMIDE 40 MG/4 ML VIAL IV SCH (09:02)
[2021-03-04 09:04] LABS: ABG Base Excess 5.3 MMOL/L (-2.5-2.5); ABG HCO3 29.1 MMOL/L (20-26); ABG Oxygen Saturation 92.7 % (95-100); ABG PCO2 48.5 MM HG (35-48); ABG PH 7.413 (7.35-7.45); ABG PO2 70.7 MM HG (80-95); ABG TCO2 27.5 MMOL/L (23-27); Allen Test Positive
[2021-03-04 14:08] LABS: Basophils % 0.4 % (0.0-0.8); Eosinophils # 0.1 10*3/uL (0.0-0.87); Hematocrit 39.6 VOL% (42.0-52.0); Hemoglobin 12.5 GM/DL (14.0-18.0); Immature Granulocytes % 0.6 %; Immature Granulocytes Absolute 0.06 #; Lymphocytes % 10.4 % (21.2-54.2); Mean Corpuscular HGB Conc 31.6 GM/DL (32-36); Mean Corpuscular Volume 98.8 FL (87-102); Mean Platelet Volume 10.3 FL (9.6-12.0); Monocytes % 10.7 % (1.7-12.7); Neutrophils % 76.9 % (38.7-73.9); Platelet Count 213 T/CUMM (130-400); Red Blood Count 4.01 MC/CUMM (3.8-5.5); Red Cell Distribution Width 20.6 % (9.3-17.3); White Blood Count 9.6 T/CUMM (4-12)
[2021-03-04 14:31] LABS: Calcium 8.9 MG/DL (8.5-10.1); Osmolality,Calculated 292.3 MOS/KG (273-304)
[2021-03-04] MEDS: AMPICILLIN INJ 2,000 MG in SODIUM CHLORIDE 0.9% 100 ML IV SCH ×2 (14:41→21:27)
[2021-03-04] MEDS: DIGOXIN 0.125 MG TABLET PO SCH (14:41)
[2021-03-04] MEDS ORDERED: SODIUM CHLORIDE 0.9% 250 ML IV ONE (16:04)
[2021-03-05] MEDS: AMPICILLIN INJ 2,000 MG in SODIUM CHLORIDE 0.9% 100 ML IV SCH ×3 (02:40→15:20)
[2021-03-05] MEDS ORDERED: FUROSEMIDE 40 MG/4 ML VIAL IV SCH (09:00)
[2021-03-05] MEDS ORDERED: APIXABAN 2.5 MG TABLET PO SCH (09:00)
[2021-03-05 09:19] LABS: Calcium 8.9 MG/DL (8.5-10.1); Osmolality,Calculated 295.8 MOS/KG (273-304); Potassium 4.1 MMOL/L (3.5-5.1)
[2021-03-05] MEDS ORDERED: ACETAMINOPHEN 325 MG TABLET ONE (09:23)
[2021-03-05] MEDS: FERROUS SULFATE 325 MG TABLET PO SCH (09:29)
[2021-03-05] MEDS: FINASTERIDE 5 MG TABLET PO SCH (09:29)
[2021-03-05] MEDS: PANTOPRAZOLE 40 MG TABLET PO SCH (09:30)
[2021-03-05] MEDS: METOPROLOL TARTRATE 25 MG TABLET PO SCH (09:31)
[2021-03-05] MEDS ORDERED: ACETAMINOPHEN 325 MG TABLET PO PRN (10:04)
[2021-03-05 12:33] VITALS: BP 102/49
[2021-03-05] MEDS: DIGOXIN 0.125 MG TABLET PO SCH (13:56)
== END 2021-03-05 14:28 | disposition home or self-care (01) | DRG 602 ==
LOC: N.ED 13:59 → N.EDINP 19:48 → SUATTDRO 19:48 → N.TELEN 22:15
PROVIDERS: ADMIT Internal Medicine; ATTEND Emergency Medicine